=== PATIENT | male | born 1950 | race African-American/Black ===

== ENCOUNTER 2025-06-20 10:18 | Day surgery (SDC) | payer MEDICARE, OTHER ==
[2025-06-20] MEDS ORDERED: Bupivacaine HCl 0.5%/Epinephrine 1:200,000/PF 30 ml Vial ONE (10:25)
[2025-06-20] MEDS ORDERED: Ondansetron PF 4 MG/2 ML Vial ONE (10:50)
[2025-06-20] MEDS ORDERED: CEFAZOLIN 2 GM VIAL ONE (10:50)
== END 2025-06-20 13:51 | disposition home or self-care (01) ==
LOC: CSHSDC 10:18
PROVIDERS: ATTEND Surgery
PROC: 05HP33Z Insertion of Infusion Device into Right External Jugular Vein, Percutaneous Approach (ICD-10-PCS; principal; 2025-06-20)
PROC: B513ZZA Fluoroscopy of Right Jugular Veins, Guidance (ICD-10-PCS; 2025-06-20)
DX: C32.3 Malignant neoplasm of laryngeal cartilage (principal); I10 Essential (primary) hypertension; I48.91 Unspecified atrial fibrillation; Z79.899 Other long term (current) drug therapy; Z79.01 Long term (current) use of anticoagulants; Z79.82 Long term (current) use of aspirin; Z87.891 Personal history of nicotine dependence
CPT/HCPCS: 36561; 71045; J1100; J1642; J2405; J3010; A6258; C1788

== ENCOUNTER 2025-06-22 11:25 | Emergency (ER) | payer MEDICARE, OTHER ==
[2025-06-22] MEDS ORDERED: Iopamidol 300 61% 100 ML VIAL FS ONE (12:59)
[2025-06-22 13:01] LABS: #Basophils 0.04 10x3/uL (0.0-0.2); #Eosinophils 0.05 10x3/uL (0.0-0.5); #Monocytes 0.62 10x3/uL (0.0-1.1); #Neutrophils 7.43 10x3/uL (1.5-8.4); %Basophils 0.4 % (0.0-2.0); %Eosinophils 0.5 % (0.0-6.0); %Lymphocytes 23.6 % (18.0-47.0); %Monocytes 5.8 % (0.0-10.0); %Neutrophils 69.3 % (40.0-75.0); ALT (SGPT) 19 U/L (Less than 45); AST (SGOT) 19 U/L (11-34); Albumin 3.5 g/dL (3.1-4.5); Alkaline Phosphatase 71 U/L (40-110); Anion Gap 9 mmol/L (10-20); BUN (Urea Nitrogen) 14 mg/dL (8.4-25.7); Bilirubin, Total 0.4 mg/dL (0.3-1.2); Calc. Creatinine Clearance 0 mL/min (70-130); Calcium 8.7 mg/dL (7.8-10.44); Carbon Dioxide 29 mmol/L (23-31); Chloride 108 mmol/L (98-107); Globulin 3.2 g/dL (2.4-3.5); Glucose 89 mg/dL (83-110); Hematocrit 41.2 % (38.8-50.0); Hemoglobin 13.8 g/dL (13.5-17.5); Lipase 10 U/L (8-78); Mean Corpuscular Hemoglobin 29.1 pg (27.0-33.0); Mean Corpuscular Volume 86.9 fL (81.2-95.1); Platelet Count 107 10x3/uL (150-450); Potassium 3.8 mmol/L (3.5-5.1); Red Blood Cell (RBC) Count 4.74 10x6/uL (4.32-5.72); Sodium 142 mmol/L (136-145); White Blood Cell (WBC) Count 10.71 10x3/uL (3.5-10.5)
[2025-06-22] MEDS ORDERED: Ondansetron PF 4 MG/2 ML Vial ONE (13:56)
[2025-06-22 14:54] LABS: Glucose, Urine (Dipstick) Normal (Negative); Leukocyte Negative (Negative); Protein, Urine (Dipstick) Negative (Neg-Trace); Specific Gravity, Urine 1.010 (1.005-1.030)
[2025-06-22 15:05] LABS: Bacteria/HPF 1+ HPF (None Seen); CAUTI Indications for Culture Pelvic or flank pain; RBC/HPF 0-3 HPF (0-3); WBC/HPF 0-3 HPF (0-3)
[2025-06-22 15:08] LABS: Mucous/LPF 1+ LPF (<2+)
[2025-06-22 15:09] LABS: Urine Culture Reflex No No
== END 2025-06-22 15:40 | disposition home or self-care (01) ==
LOC: CSHERS 11:25
DX: N39.0 Urinary tract infection, site not specified (principal); Z87.891 Personal history of nicotine dependence
CPT/HCPCS: 74177; 80053; 81001; 83690; 85025; J2270; J2405; 36415; 96374; 96375; Q9967

== ENCOUNTER 2025-07-21 05:47 | Day surgery (SDC) | payer MEDICARE, OTHER ==
[2025-07-21] MEDS ORDERED: Lidocaine 1% PF 5 ML VIAL ONE ×2 (06:43→07:02)
[2025-07-21] MEDS ORDERED: PROPOFOL 20 ML ONE ×2 (06:44→06:58)
[2025-07-21] MEDS ORDERED: CEFAZOLIN 2 GM VIAL ONE (06:46)
[2025-07-21] MEDS ORDERED: Rocuronium Bromide 10 MG/ML (10ML VIAL) ONE (07:01)
[2025-07-21] MEDS ORDERED: Ketorolac Tromethamine 30 MG (1 mL) VIAL ONE (07:48)
[2025-07-21] MEDS ORDERED: HYDROcodone/Acetaminophen 5/325 mg Tablet ONE (08:13)
[2025-07-21] MEDS ORDERED: SUGAMMADEX SODIUM 200 MG/2 ML VIAL ONE (08:21)
== END 2025-07-21 08:47 | disposition home or self-care (01) ==
LOC: CSHSDC 05:47
PROVIDERS: ATTEND Surgery
PROC: 0DH63UZ Insertion of Feeding Device into Stomach, Percutaneous Approach (ICD-10-PCS; principal; 2025-07-21)
DX: R13.10 Dysphagia, unspecified (principal); C32.3 Malignant neoplasm of laryngeal cartilage; I10 Essential (primary) hypertension; I48.91 Unspecified atrial fibrillation; C61 Malignant neoplasm of prostate; F41.9 Anxiety disorder, unspecified; F32.A Depression, unspecified; J44.9 Chronic obstructive pulmonary disease, unspecified; Z99.81 Dependence on supplemental oxygen; Z87.891 Personal history of nicotine dependence; Z85.21 Personal history of malignant neoplasm of larynx; Z79.01 Long term (current) use of anticoagulants; Z79.899 Other long term (current) drug therapy
CPT/HCPCS: 43246; B4087; J1100; J1885; J2704